=== PATIENT | male | born 1975 | race Caucasian/White ===

== ENCOUNTER 2021-08-02 06:22 | Emergency (ER) | payer OTHER ==
[2021-08-02] MEDS ORDERED: Acetaminophen/oxyCODONE 325-5 MG Tab PO ONE (07:41)
== END 2021-08-02 08:05 | disposition home or self-care (01) ==
LOC: JD.ED 06:22
DX: S93.402A Sprain of unspecified ligament of left ankle, initial encounter (principal); S96.912A Strain of unspecified muscle and tendon at ankle and foot level, left foot, initial encounter; Z88.5 Allergy status to narcotic agent; X50.1XXA Overexertion from prolonged static or awkward postures, initial encounter
CPT/HCPCS: 73590-26-LT; 73590-LT; 73610-26-LT; 73610-LT; 99283